=== PATIENT | male | born 2000 | race Caucasian/White ===

== ENCOUNTER 2023-05-24 06:40 | Emergency (ER) | payer BC ==
[2023-05-24] MEDS ORDERED: Lidocaine 2% Viscous Solution 10 ML, Aluminum & Magnesium Hydroxide 30 ML SSW SCH (07:45)
== END 2023-05-24 08:50 | disposition home or self-care (01) ==
LOC: CSHERS 06:40
DX: R12 Heartburn (principal)
CPT/HCPCS: 71045; 93005